=== PATIENT | male | born 1960 | race Caucasian/White ===

== ENCOUNTER 2018-02-20 10:33 | Day surgery (SDC) | payer SELFPAY ==
[~2018-02-20] VITALS: Ht 170.2 cm; Wt 78.0 kg
[2018-02-20] MEDS ORDERED: SODIUM CHLORIDE 0.9% 500 ML IV ONE (10:57)
[2018-02-20 11:00] VITALS: BP 166/78
[2018-02-20] MEDS ORDERED: ACETAZOLAMIDE SODIUM 500MG/VIAL IV ONE (11:00)
[2018-02-20 11:35] LABS: BASOPHILS % 1.1 % (0.0-2.0); EOSINOPHILS % 2.6 % (0.0-5.0); HEMATOCRIT. 35.8 % (42.0-52.0); HEMOGLOBIN. 12.2 g/dL (14.0-18.0); LYMPHOCYTES % 22.6 % (20.0-50.0); MEAN CORPUSCULAR HEMOGLOBIN 31.2 pg (28.0-32.0); MEAN CORPUSCULAR VOLUME 91.4 fL (80.0-94.0); MEAN PLATELET VOLUME 10.6 fl (7.4-10.4); MONOCYTES % 12.4 % (2.0-8.0); NEUTROPHILS % 61.3 % (40.0-76.0); PLATELET 117 x1000/uL (130-400); RED BLOOD CELL COUNT 3.92 mill/uL (4.7-6.1); RED CELL DISTRIBUTION WIDTH 15.7 % (11.6-14.6)
[2018-02-20 11:44] LABS: INR 1.1; PARTIAL THROMBOPLASTIN TIME 29.8 sec (23.4-31.0); PROTHROMBIN TIME 11.2 sec (9.4-11.6)
[2018-02-20] MEDS ORDERED: MIDAZOLAM HCL 2 MG/2 ML VIAL ONE (12:49)
[2018-02-20] MEDS ORDERED: LIDOCAINE HCL/PF 1% 10 MG/ML 5ML VIAL ONE (12:49)
[2018-02-20] MEDS ORDERED: PROPOFOL 200MG/20ML VIAL IV ONE (12:50)
[2018-02-20] MEDS ORDERED: SODIUM CHLORIDE 0.9% 1,000 ML IV ONE (13:05)
[2018-02-20] MEDS ORDERED: TRIAMCINOLONE ACETONIDE 40MG/ML 1ML VIAL ONE (13:11)
[2018-02-20] MEDS ORDERED: ONDANSETRON HCL 4MG/2ML VIAL IV PRN (13:15)
[2018-02-20] MEDS ORDERED: HYDROMORPHONE HCL/PF 2MG/ML CPJ IV PRN (13:15)
[2018-02-20] MEDS ORDERED: ACETAMINOPHEN 325MG TABLET PO SCH (13:15)
[2018-02-20] MEDS ORDERED: TETRACAINE 0.5% OPHTH DROPS 4ML ONE (14:52)
[2018-02-20] MEDS ORDERED: BUPIVACAINE HCL/PF 0.75% (7.5MG/ML) 10ML ONE (14:52)
[2018-02-20] MEDS ORDERED: CIPROFLOXACIN 0.3% OPHTH SOLN 2.5ML ONE (14:52)
[2018-02-20] MEDS ORDERED: BALANCED SALT IRRIG SOLN 15ML ONE (14:52)
[2018-02-20] MEDS ORDERED: LIDOCAINE HCL 2%/EPINEPHRINE 1:100,000 20 ML VIAL INFIL ONE (14:52)
[2018-02-20] MEDS ORDERED: NEO/POLYMYX B SULF/DEXAMETH OPHTH OINT 3.5GM ONE ×2 (14:52)
== END 2018-02-20 15:00 | disposition home or self-care (01) ==
LOC: ER 10:56 → EDBEDREQ 11:11 → EDBEDREQTM 11:11 → ER 12:22 → OR 12:38 → ENRESERV 18:47 → CANBEDREQ 02-21 01:44
PROVIDERS: ATTEND Ophthalmology
DX: H40.89 Other specified glaucoma (principal); I10 Essential (primary) hypertension; E11.22 Type 2 diabetes mellitus with diabetic chronic kidney disease; N18.6 End stage renal disease; E66.3 Overweight; Z99.2 Dependence on renal dialysis; Z90.49 Acquired absence of other specified parts of digestive tract; Z98.890 Other specified postprocedural states
CPT/HCPCS: 36415; 66170; 80048; 85025; 85610; 85730; 93005; J1120; J2250; J3490; J7040; J2704; J3301

== ENCOUNTER 2018-03-06 10:37 | Day surgery (SDC) | payer MEDICAID ==
[~2018-03-06] VITALS: Ht 157.5 cm; Wt 67.0 kg
[2018-03-06 11:31] LABS: BASOPHILS % 0.9 % (0.0-2.0); EOSINOPHILS % 2.2 % (0.0-5.0); HEMATOCRIT. 36.6 % (42.0-52.0); HEMOGLOBIN. 12.6 g/dL (14.0-18.0); LYMPHOCYTES % 21.3 % (20.0-50.0); MEAN CORPUSCULAR HEMOGLOBIN 31.2 pg (28.0-32.0); MEAN CORPUSCULAR VOLUME 90.6 fL (80.0-94.0); MEAN PLATELET VOLUME 11.2 fl (7.4-10.4); MONOCYTES % 8.5 % (2.0-8.0); NEUTROPHILS % 67.1 % (40.0-76.0); PLATELET 154 x1000/uL (130-400); RED BLOOD CELL COUNT 4.03 mill/uL (4.7-6.1); RED CELL DISTRIBUTION WIDTH 15.3 % (11.6-14.6)
[2018-03-06 11:33] LABS: CHLORIDE 98 mEq/L (98-107)
[2018-03-06 12:00] VITALS: BP 152/68
[2018-03-06] MEDS ORDERED: LIDOCAINE HCL/PF 1% 10 MG/ML 5ML VIAL ONE (12:19)
[2018-03-06] MEDS ORDERED: FENTANYL CITRATE/PF 50MCG/ML 2ML VIAL ONE (14:24)
[2018-03-06] MEDS ORDERED: BALANCED SALT IRRIG SOLN 15ML ONE (14:41)
[2018-03-06] MEDS ORDERED: TETRACAINE 0.5% OPHTH DROPS 4ML ONE (14:41)
[2018-03-06] MEDS ORDERED: NEO/POLYMYX B SULF/DEXAMETH OPHTH OINT 3.5GM ONE (14:41)
[2018-03-06] MEDS ORDERED: BUPIVACAINE HCL/PF 0.75% (7.5MG/ML) 10ML ONE (14:41)
[2018-03-06] MEDS ORDERED: LIDOCAINE HCL 2%/EPINEPHRINE 1:100,000 20 ML VIAL INFIL ONE (14:41)
[2018-03-06] MEDS ORDERED: CIPROFLOXACIN 0.3% OPHTH SOLN 2.5ML ONE (14:41)
[2018-03-06] MEDS ORDERED: PREDNISOLONE ACETATE 1% OPHTH DROPS 1ML ONE (14:41)
[2018-03-06] MEDS ORDERED: LIDOCAINE HCL/PF 2% 20 MG/ML 10ML VIAL ONE (14:41)
[2018-03-06] MEDS ORDERED: FENTANYL CITRATE/PF 50MCG/ML 2ML VIAL IV ONE (14:45)
== END 2018-03-06 16:00 | disposition home or self-care (01) ==
LOC: ER 10:37 → EDBEDREQ 10:59 → CANRESERV 11:24 → ENRESERV 11:24 → OR 15:55 → ENRESERV 16:17 → CANBEDREQ 03-07 16:54
PROVIDERS: ATTEND Ophthalmology
DX: H21.02 Hyphema, left eye (principal); H40.89 Other specified glaucoma; E11.319 Type 2 diabetes mellitus with unspecified diabetic retinopathy without macular edema; I12.0 Hypertensive chronic kidney disease with stage 5 chronic kidney disease or end stage renal disease; E11.22 Type 2 diabetes mellitus with diabetic chronic kidney disease; N18.6 End stage renal disease; E66.3 Overweight; Z99.2 Dependence on renal dialysis; Z90.49 Acquired absence of other specified parts of digestive tract; Z98.890 Other specified postprocedural states
CPT/HCPCS: 36415; 66170; 67028; 80053; 82962; 85025; 93005; J3010; J3490

== ENCOUNTER 2024-03-26 10:11 | Emergency (ER) | payer MEDICAID, OTHER ==
[~2024-03-26] VITALS: Ht 162.6 cm; Wt 70.0 kg
[2024-03-26 10:29] VITALS: TEMP 98.2; O2SAT 99
[2024-03-26 11:27] LABS: BASOPHILS % 0.4 % (0.0-2.0); DIFFERENTIAL COMMENT 0; EOSINOPHILS % 3.2 % (0.0-5.0); HEMATOCRIT. 31.4 % (42.0-52.0); HEMOGLOBIN. 10.6 g/dL (14.0-18.0); LYMPHOCYTES % 16.6 % (20.0-50.0); MEAN CORPUSCULAR HEMOGLOBIN 36.6 pg (28.0-32.0); MEAN CORPUSCULAR HGB CONC 33.8 g/dL (31.0-37.0); MEAN CORPUSCULAR VOLUME 108.5 fL (80.0-94.0); MEAN PLATELET VOLUME 9.1 fl (7.4-10.4); MONOCYTES % 5.6 % (2.0-8.0); NEUTROPHILS % 74.2 % (40.0-76.0); PLATELET 98 x1000/uL (130-400); RED BLOOD CELL COUNT 2.89 mill/uL (4.7-6.1); RED CELL DISTRIBUTION WIDTH 15.5 % (11.6-14.6); WHITE BLOOD COUNT 7.3 x1000/uL (4.5-11.0)
[2024-03-26 11:36] LABS: PROTHROMBIN TIME 11.2 sec (9.6-11.0)
[2024-03-26 11:39] LABS: POTASSIUM 4.6 mEq/L (3.5-5.1)
[2024-03-26 11:54] LABS: CREATININE 6.8 mg/dL (0.6-1.3)
[2024-03-26] MEDS ORDERED: ACETAZOLAMIDE SODIUM 500MG/VIAL IV ONE (12:15)
[2024-03-26 13:00] VITALS: BP 163/66; PULSE 78; RESP 15; O2SAT 98
[2024-03-26] MEDS ORDERED: FENTANYL CITRATE/PF 50MCG/ML 2ML VIAL ONE (14:52)
[2024-03-26] MEDS ORDERED: BALANCED SALT IRRIG SOLN 15ML ONE (15:00)
[2024-03-26] MEDS: ONDANSETRON HCL 4MG/2ML INJ IV PRN (16:15)
== END 2024-03-26 14:20 | disposition admitted as inpatient to this hospital (09) ==
LOC: ER 10:11
DX: H40.51X0 Glaucoma secondary to other eye disorders, right eye, stage unspecified (principal); I12.0 Hypertensive chronic kidney disease with stage 5 chronic kidney disease or end stage renal disease; E11.22 Type 2 diabetes mellitus with diabetic chronic kidney disease; E78.5 Hyperlipidemia, unspecified; N18.6 End stage renal disease; Z98.890 Other specified postprocedural states; Z99.2 Dependence on renal dialysis; Z90.49 Acquired absence of other specified parts of digestive tract
CPT/HCPCS: 66180; 68200; 80048; 85025; 85610; 86850; 86900; 86901; 36415; 93005; 96374; 99285; J3010; J3490 ×2; J2405; Z7610 ×14; 99284; J1120; C1783